=== PATIENT | female | born 1965 | race American Indian/Alaskan Native ===

== ENCOUNTER 2017-06-25 05:54 | Day surgery (SDC) | payer OTHER ==
[2017-06-25 06:48] VITALS: BMI 38.0
[2017-06-25] MEDS ORDERED: Propofol 10 mg/ml Inj (20 ML) ONE (10:29)
[2017-06-25] MEDS ORDERED: Lactated Ringer's 1,000 ML IV ONE (10:30)
[2017-06-25] MEDS ORDERED: Simethicone 40 mg/0.6 ml Liquid (30 ml) ONE (10:36)
[2017-06-25] MEDS ORDERED: Lactated Ringer's 500 ML IV SCH (10:45)
[2017-06-25 11:05] VITALS: TEMP 97.8
[2017-06-25 11:14] VITALS: O2SAT 100
[2017-06-25 11:34] VITALS: BP 107/62; PULSE 61; RESP 12
== END 2017-06-25 14:51 | disposition home or self-care (01) ==
LOC: C.ENDO 05:54
PROVIDERS: ATTEND Internal Medicine Gastroenterology
DX: Z12.11 Encounter for screening for malignant neoplasm of colon (principal); K64.8 Other hemorrhoids
CPT/HCPCS: 45378; 82948; J2704; J3010; J7120